=== PATIENT | female | born 1970 | race Caucasian/White ===

== ENCOUNTER → 2016-05-12 | Outpatient (CLI) | payer OTHER ==
[~2016-05-12] MED LIST: NEXI20CA PO; TRAM50TA PO; ZYRT10TA PO
[2016-05-12 09:59] LABS: ALKALINE PHOSPHATASE 103 U/L (45-117); ALT (GPT) 26 U/L (10-53); ANION GAP 6 MEQ/L (5-15); AST (GOT) 13 U/L (15-37); BICARBONATE 28.3 MEQ/L (21.0-32.0); BLOOD UREA NITROGEN 9 MG/DL (7-18); CHLORIDE 104 MEQ/L (98-107); FREE T4 0.92 NG/DL (0.76-1.46); GLOMERULAR FILTRATION RATE 84 ML/MIN (>89); GLUCOSE,FASTING 90 MG/DL (74-99); SODIUM (NA) 138 MEQ/L (136-145)
[2016-05-12 10:19] LABS: RHEUMATOID FACTOR TRIGGER LESS THAN 10.0 IU/ML (0.0-14.9)
== END ==
LOC: CLAB 08:02
PROVIDERS: ATTEND Family Medicine
DX: R53.83 Other fatigue (principal); M25.20 Flail joint, unspecified joint; I10 Essential (primary) hypertension
CPT/HCPCS: 36415; 80053; 84439; 84443; 85652; 86038; 86140; 86430

== ENCOUNTER → 2016-05-30 | Outpatient (CLI) | payer OTHER ==
[2016-05-30 15:45] LABS: HEMATOCRIT 41.6 % (35.0-46.0); MEAN CELL VOLUME 85.6 FL (80.0-100.0); MEAN CORPUSCULAR HEMOGLOBIN 29.7 PG (27.0-34.0); MEAN CORPUSCULAR HGB CONC 34.7 % (32.0-36.0); PLATELET COUNT 226 TH/MM3 (150-450); RED BLOOD COUNT 4.86 MIL/MM3 (4.00-5.30); RED CELL DISTRIBUTION WIDTH 12.8 % (11.6-17.2); REVIEW FLAG FINAL; WHITE BLOOD COUNT 8.5 TH/MM3 (4.0-11.0)
== END ==
LOC: PLAB 12:58
PROVIDERS: ATTEND Family Medicine
DX: R53.83 Other fatigue (principal); D72.828 Other elevated white blood cell count; G62.89 Other specified polyneuropathies; E55.9 Vitamin D deficiency, unspecified
CPT/HCPCS: 82306; 82607; 85027

== ENCOUNTER → 2016-06-17 | Outpatient (CLI) | payer OTHER ==
[2016-06-17 12:27] LABS: BLOOD, URINE NEG (NEG); GLUCOSE,URINE NEG (NEG); KETONE, URINE NEG (NEG); NITRITE,URINE NEG (NEG); SQUAMOUS EPITHELIAL CELL URINE <1 /hpf (0-5); URINE COLOR YELLOW (YELLW/STRAW)
== END ==
LOC: ELAB 08:47
PROVIDERS: ATTEND Family Medicine
DX: N39.0 Urinary tract infection, site not specified (principal); R10.9 Unspecified abdominal pain; R31.9 Hematuria, unspecified
CPT/HCPCS: 81001

== ENCOUNTER → 2016-07-14 | Outpatient (CLI) | payer OTHER ==
[2016-07-14 11:58] LABS: AUTOMATED NEUTROPHIL # 5.3 TH/MM3 (1.8-7.7); BASOPHIL # 0.1 TH/MM3 (0-0.2); EOSINOPHIL # 0.2 TH/MM3 (0-0.4); EOSINOPHIL % 2.7 % (0.0-4.0); HEMATOCRIT 44.2 % (35.0-46.0); HEMO FLAGS DIFF FINAL; LYMPH % 24.2 % (9.0-44.0); LYMPHOCYTE # 1.9 TH/MM3 (1.0-4.8); MEAN CELL VOLUME 85.8 FL (80.0-100.0); MEAN CORPUSCULAR HEMOGLOBIN 29.3 PG (27.0-34.0); MEAN CORPUSCULAR HGB CONC 34.2 % (32.0-36.0); MONO % 5.5 % (0.0-8.0); NEUT % 66.6 % (16.0-70.0); PLATELET COUNT 242 TH/MM3 (150-450); RED BLOOD COUNT 5.16 MIL/MM3 (4.00-5.30); RED CELL DISTRIBUTION WIDTH 13.1 % (11.6-17.2)
[2016-07-14 12:17] LABS: BLOOD, URINE NEG (NEG); COMMENT (UR) CULT NOT INDICATED; CULTURE IF INDICATED CULT NOT INDICATED; GLUCOSE,URINE NEG (NEG); KETONE, URINE NEG (NEG); NITRITE,URINE NEG (NEG); SQUAMOUS EPITHELIAL CELL URINE 2 /hpf (0-5); URINE COLOR YELLOW (YELLW/STRAW)
[2016-07-14 12:28] LABS: ALKALINE PHOSPHATASE 116 U/L (45-117); ALT (GPT) 31 U/L (10-53); ANION GAP 9 MEQ/L (5-15); AST (GOT) 19 U/L (15-37); BLOOD UREA NITROGEN 15 MG/DL (7-18); CHLORIDE 102 MEQ/L (98-107); GLOMERULAR FILTRATION RATE 76 ML/MIN (>89); GLUCOSE,FASTING 79 MG/DL (74-99); POTASSIUM 3.7 MEQ/L (3.5-5.1); SODIUM (NA) 140 MEQ/L (136-145); TOTAL BILIRUBIN ADULT 0.9 MG/DL (0.2-1.0)
== END ==
LOC: ELAB 08:20
PROVIDERS: ATTEND Obstetrics & Gynecology Gynecology
DX: R39.15 Urgency of urination (principal)
CPT/HCPCS: 36415; 80053; 81001; 85025

== ENCOUNTER → 2016-07-22 | Day surgery (SDC) | payer OTHER ==
[~2016-07-22] VITALS: Ht 160 cm; Wt 122.8 kg
[~2016-07-22] MED LIST changes: +ACETAMINOPHEN 1000 MG/100 ML VIAL IV ONE; +APREPITANT 40 MG CAP ONE; +CHLORHEXIDINE GLUCONATE 2 % 1 PACK (2 CLOTHS) TOPICAL PRN; +FAMOTIDINE 20 MG/2 ML VIAL ONE; +INSULIN HUMAN REGULAR 1,000 UNITS/10 ML VIAL SQ PRN; +KETOROLAC TROMETHAMINE 30 MG/ML (IVP) VIAL ONE; +KETOROLAC TROMETHAMINE 60 MG/2 ML (IM) VIAL IM ONE; +LACTATED RINGER'S 1000 ML IV PRN; +METOPROLOL TARTRATE 25 MG TAB PO PRN; +MIDAZOLAM HCL 2 MG/2 ML VIAL ONE; +ONDANSETRON HCL 4 MG/2 ML VIAL IV PUSH ONE; +POVIDONE IODINE 5% (ANTISEPSIS KIT) 4 APPLICATIONS EACH NARE PRN; +PROPOFOL 200 MG/20 ML AMP IV ONE; +SODIUM CHLORID 0.9% 500 ML IV PRN; +ceFAZolin 2 GM PREMIX 50 ML IV SCH
[2016-07-22 07:51] VITALS: BP 118/54; PULSE 47; RESP 16; TEMP 98.4; O2SAT 98
--- NOTE | 2016-07-22 08:43 | MH ---
cc: ASHLIE POP MD DATE OF ADMISSION: 07/22/2016 DATE OF : 1970 scheduled for admission on 07/22/2016 for cystoscopy and hydrodistention for bladder pain. Patient is a 46-year-old white female 2, para 2. She has had two sections and total abdominal hysterectomy. She has issues with bladder discomfort bladder spasms and mild hematuria. She also has history of left lower quadrant pelvic pain. The patient has had a negative urinalysis continues to have pain and wants to proceed with cystoscopy. SURGEON Ashlie Pop MD. MEDICAL HISTORY Negative for heart, lung, liver disease, hypertension, diabetes or stroke. Body mass index is approaching 50. PAST SURGICAL HISTORY 1. Thyroid biopsy 2. Cholecystectomy 3. x2 4. Hysterectomy. 5. Tubal ligation 6. Right shoulder surgery. MEDICATIONS Tramadol 2 mg p.o. q.8 h p.r.n. ALLERGIES PENICILLIN CAUSES RASH. OBSTETRICAL HISTORY Two C-sections GYNECOLOGIC HISTORY No STDs or abnormal Pap smears hysterectomy for benign condition. FAMILY HISTORY Noncontributory SOCIAL HISTORY Does not smoke, use alcohol or drugs. REVIEW OF SYSTEMS Review of systems as above. No chest pain, orthopnea, PND. No nausea or chills. No vaginal bleeding or discharge bladder pain is intermittent as describes bladder spasms intermittent hematuria. PHYSICAL EXAMINATION: VITAL SIGNS: Her height 5.3. The weight is 270, BMI is 48, blood pressure 120/70. IN GENERAL: The patient is alert and oriented, in no acute distress. No sign of cognitive function depression. HEAD, EYES, EARS, NOSE, AND THROAT: Within normal limits. NECK: The neck is supple. No JVD. CHEST: The chest is clear. HEART: Regular rate and rhythm. ABDOMEN: Soft, nontender, No hepatosplenomegaly. No site tenderness. PELVIC EXAMINATION: In the office shows pop Q score is Aa -3. Ap -3, point C is -8, total vaginal length is 10, genital hiatus is 4. Perineal body is 5. Levator strength is 3/5. Sacral nerve reflexes normal. EXTREMITIES: Normal skin rashes. NEUROLOGIC: Nonfocal. No DVT signs. ASSESSMENT Patient with bladder pain syndrome we discussed operative, benefits of treatment, She is aware of the risks, benefits and alternatives of planned procedure including possibility of pain may not be relieved. She is also aware that the cystoscopy will have probably very little affect if any on her chronic pelvic pain issues on her left side. At this point we will use we will use DVT prophylaxis with sequential compression device and antibiotic prophylaxis with Ancef. She has a penicillin allergy which she has used cephalosporins in the past without complications. Anticipate outpatient procedure. MD PRECIOUS Colmenares/miranda /4:29 PM /8:41 AM
--- NOTE | 2016-07-22 09:49 | PD.OP ---
Operative Report Date of Surgery: Jul 22, 2016 Preoperative Diagnosis: (1) Bladder pain Postoperative Diagnosis: (1) Bladder pain (2) Trigonitis Procedure: CYSTOSCOPY WITH HYDRODISTENTION Anesthesia: LMA Surgeon: Reuben Grajeda Ux Manager(s): [facility] [place] X 1 Resident Surgeon: NONE Operation and Findings: TRIGONITIS BLADDER CAPACITY 350 CC Reuben Grajeda MD Jul 22, 2016 09:49
[2016-07-22 10:55] VITALS: BP 124/54; PULSE 44; RESP 18; TEMP 97.4; O2SAT 97
--- NOTE | 2016-07-24 17:29 | MP ---
cc: ASHLIE POP MD DATE OF SURGERY 07/22/2016 PREOPERATIVE DIAGNOSIS Bladder pain syndrome. POSTOPERATIVE DIAGNOSES Bladder pain syndrome with chronic trigonitis. SURGEON Taras ANESTHESIA Laryngeal mask. BLOOD LOSS None. URINE OUTPUT 200 cc. PATENT LEGAL ASSISTANT [place] staff x1. FINDINGS External genitalia normal. POP-Q score: Aa is -2, Ap is -1. Total vaginal length is 8. Genital hiatus is 6. Perineal body is 6. Point C is -8. Rectal exam normal. Cystoscopy shows no sign of ulceration, polyps, trabeculation. Trigone shows some mild trigonitis, otherwise, no significant findings. Bladder capacity at 50 cm of water pressure 350 cc. COMPLICATIONS None. DISPOSITION To recovery room stable. Needle, instrument, sponge count correct. DRAINS None. SUMMARY OF INDICATION FOR PROCEDURE Patient with painful bladder symptomatology. The patient has history of hysterectomy and chronic pelvic pain. PROCEDURE IN DETAIL The patient was taken to the operating theater, prepped and draped in fashion appropriate for planned procedure. She was in dorsal lithotomy position, with careful attention placed legs in stirrups to avoid undue stress to sensitive neurovascular structures. Above findings noted. Neurovascular integrity documented. 17-Nigerian __, a 70 degrees scope was used to inspect the bladder and urethra with above findings. Bladder capacity documented and then repeat cystoscopy showed no significant findings. Procedure was concluded. The patient reversed from anesthesia, taken to recover room in stable condition. For the patient's issues with continued pain, will use antihistamines and anticholinergics or beta three agonist for bladder pain symptomatology. Ashlie Pop MD CS/EO /9:47 AM /5:19 PM
== END | disposition home or self-care (01) ==
LOC: HSDC 06:55
PROVIDERS: ATTEND Obstetrics & Gynecology Gynecology
DX: N30.30 Trigonitis without hematuria (principal); R39.89 Other symptoms and signs involving the genitourinary system
CPT/HCPCS: 00910; 52000; J0131; J0690; J1885; J2250; J2405; J3010; J7120; J8501

== ENCOUNTER → 2016-08-25 | Outpatient (CLI) | payer OTHER ==
[~2016-08-25] MED LIST changes: -ACETAMINOPHEN 1000 MG/100 ML VIAL IV ONE; -APREPITANT 40 MG CAP ONE; -CHLORHEXIDINE GLUCONATE 2 % 1 PACK (2 CLOTHS) TOPICAL PRN; -FAMOTIDINE 20 MG/2 ML VIAL ONE; -INSULIN HUMAN REGULAR 1,000 UNITS/10 ML VIAL SQ PRN; -KETOROLAC TROMETHAMINE 30 MG/ML (IVP) VIAL ONE; -KETOROLAC TROMETHAMINE 60 MG/2 ML (IM) VIAL IM ONE; -LACTATED RINGER'S 1000 ML IV PRN; -METOPROLOL TARTRATE 25 MG TAB PO PRN; -MIDAZOLAM HCL 2 MG/2 ML VIAL ONE; -ONDANSETRON HCL 4 MG/2 ML VIAL IV PUSH ONE; -POVIDONE IODINE 5% (ANTISEPSIS KIT) 4 APPLICATIONS EACH NARE PRN; -PROPOFOL 200 MG/20 ML AMP IV ONE; -SODIUM CHLORID 0.9% 500 ML IV PRN; -ceFAZolin 2 GM PREMIX 50 ML IV SCH
[2016-08-25 11:49] LABS: HEMATOCRIT 46.4 % (35.0-46.0); MEAN CELL VOLUME 86.4 FL (80.0-100.0); MEAN CORPUSCULAR HGB CONC 33.5 % (32.0-36.0); PLATELET COUNT 222 TH/MM3 (150-450); RED BLOOD COUNT 5.37 MIL/MM3 (4.00-5.30); RED CELL DISTRIBUTION WIDTH 13.3 % (11.6-17.2); REVIEW FLAG FINAL; WHITE BLOOD COUNT 6.9 TH/MM3 (4.0-11.0)
[2016-08-25 11:56] LABS: BLOOD, URINE NEG (NEG); COMMENT (UR) CULT NOT INDICATED; CULTURE IF INDICATED CULT NOT INDICATED; GLUCOSE,URINE NEG (NEG); KETONE, URINE NEG (NEG); MUCUS URINE FEW /lpf (OCC); NITRITE,URINE NEG (NEG); PH, URINE 5.5 (5.0-8.5); SQUAMOUS EPITHELIAL CELL URINE 1 /hpf (0-5); URINE COLOR YELLOW (YELLW/STRAW)
[2016-08-25 12:07] LABS: CREATININE RANDOM URINE 92 MG/DL (27-300)
[2016-08-25 12:13] LABS: ANION GAP 8 MEQ/L (5-15); AST (GOT) 15 U/L (15-37); BICARBONATE 27.4 MEQ/L (21.0-32.0); BLOOD UREA NITROGEN 11 MG/DL (7-18); CHLORIDE 103 MEQ/L (98-107); GLOMERULAR FILTRATION RATE 102 ML/MIN (>89); GLUCOSE,FASTING 88 MG/DL (74-99); MAGNESIUM 2.2 MG/DL (1.5-2.5); POTASSIUM 4.2 MEQ/L (3.5-5.1); SODIUM (NA) 138 MEQ/L (136-145)
[2016-08-25 12:17] LABS: MICRO ALBUMIN RANDOM URINE RAW LESS THAN 5.0 MG/L (0.0-30.0); MICROALBUMIN/CREAT RATIO RAND 5 MG/G CRE (0-30)
[2016-08-25 12:39] LABS: ALKALINE PHOSPHATASE 115 U/L (45-117); ALT (GPT) 38 U/L (10-53); FERRITIN 91 NG/ML (8-252); FREE T4 0.96 NG/DL (0.76-1.46); HDL CHOLESTEROL 56.1 MG/DL (40.0-60.0); LDL CHOLESTEROL 82 MG/DL (0-99); TRANSFERRIN IRON PROFILE 244 MG/DL (200-360)
[2016-08-25 12:53] LABS: BHCG SCREEN QUALITATIVE LESS THAN 1 MIU/ML (0-5)
[2016-08-25 17:25] LABS: HEMOGLOBIN A1a 0.9 %; HEMOGLOBIN A1b 1.2 %
[2016-08-25 17:26] LABS: HEMOGLOBIN Ao 87.2 %; HEMOGLOBIN LA1C 1.8 %; HEMOGLOBIN P3 3.4 %
[2016-08-27 13:09] LABS: URINE ANABASINE <2.0 ng/mL (<2.0); URINE COTININE <5.0 ng/mL (<5.0); URINE NICOTINE <2.0 ng/mL (<2.0); URINE NORNICOTINE <2.0 ng/mL (<2.0)
[2016-08-30 11:51] LABS: VITAMIN A 44 mcg/dL (38-98)
== END ==
LOC: ELAB 08:19
PROVIDERS: ATTEND Surgery
DX: E11.9 Type 2 diabetes mellitus without complications (principal); K21.9 Gastro-esophageal reflux disease without esophagitis; R12 Heartburn; K58.9 Irritable bowel syndrome, unspecified; G47.33 Obstructive sleep apnea (adult) (pediatric); E66.01 Morbid (severe) obesity due to excess calories
CPT/HCPCS: 36415; 80053; 80061; 80323; 81001; 82043; 82306; 82607; 82728; 82746; 83036; 83540; 83550; 83735; 83970; 84100; 84439; 84443; 84481; 84590; 84703; 85027; G0480

== ENCOUNTER → 2016-10-27 | Outpatient (CLI) | payer OTHER ==
[2016-10-29 17:53] LABS: A FUMIGATUS CLASS 0 (()); A TENUIS LESS THAN 0 kU/L (()); A TENUIS CLASS 0 (()); ALMOND LESS THAN 0.10 kU/L (()); ALMOND CLASS 0 (()); BAHIA GRASS LESS THAN 0.10 kU/L (()); BAHIA GRASS CLASS 0 (()); BERMUDA GRASS LESS THAN 0.10 kU/L (()); BERMUDA GRASS CLASS 0 (()); BIRCH CLASS 0 (()); C HERBARUM LESS THAN 0.10 kU/L (()); C HERBARUM CLASS 0 (()); CASHEW CLASS 0 (()); CAT DANDER LESS THAN 0.10 kU/L (()); CAT DANDER CLASS 0 (()); COCKROACH LESS THAN 0.10 kU/L (()); COCKROACH CLASS 0 (()); CODFISH CLASS 0 (()); COMMON PIGWEED LESS THAN 0.10 kU/L (()); COMMON PIGWEED CLASS 0 (()); COMMON RAGWEED LESS THAN 0.10 kU/L (()); COMMON RAGWEED CLASS 0 (()); COWS MILK CLASS 0 (()); COWS MILK IGE LESS THAN 0.10 kU/L (()); D FARINAE LESS THAN 0.10 kU/L (()); D FARINAE CLASS 0 (()); D PTERONYSSINUS LESS THAN 0.10 kU/L (()); D PTERONYSSINUS CLASS 0 (()); DOG DANDER LESS THAN 0.10 kU/L (()); DOG DANDER CLASS 0 (()); EGG WHITE LESS THAN 0.10 kU/L (()); EGG WHITE CLASS 0 (()); ELM CLASS 0 (()); HAZELNUT LESS THAN 0.10 kU/L (()); HAZELNUT CLASS 0 (()); MAPLE (BOX ELDER) LESS THAN 0.10 kU/L (()); MAPLE (BOX ELDER) CLASS 0 (()); MOUNTAIN CEDAR LESS THAN 0.10 kU/L (()); MOUNTAIN CEDAR CLASS 0 (()); MOUSE CLASS 0 (()); MOUSE URINE PROTEINS LESS THAN 0.10 kU/L (()); NETTLE LESS THAN 0.10 kU/L (()); NETTLE CLASS 0 (()); OAK WHITE LESS THAN 0.10 kU/L (()); OAK WHITE CLASS 0 (()); P NOTATUM LESS THAN 0.10 kU/L (()); P NOTATUM CLASS 0 (()); PEANUT LESS THAN 0.10 kU/L (()); PEANUT CLASS 0 (()); PECAN TREE CLASS 0 (()); SALMON LESS THAN 0.10 kU/L (()); SALMON CLASS 0 (()); SCALLOP LESS THAN 0.10 kU/L (()); SCALLOP CLASS 0 (()); SESAME SEED LESS THAN 0.10 kU/L (()); SESAME SEED CLASS 0 (()); SHEEP SORREL LESS THAN 0.10 kU/L (()); SHEEP SORREL CLASS 0 (()); SHRIMP LESS THAN 0.10 kU/L (()); SHRIMP CLASS 0 (()); SOYBEAN LESS THAN 0.10 kU/L (()); SOYBEAN CLASS 0 (()); TIMOTHY GRASS LESS THAN 0.10 kU/L (()); TIMOTHY GRASS CLASS 0 (()); TUNA LESS THAN 0.10 kU/L (()); TUNA CLASS 0 (()); WALNUT LESS THAN 0.10 kU/L (()); WALNUT CLASS 0 (()); WHEAT LESS THAN 0.10 kU/L (()); WHEAT CLASS 0 (())
== END ==
LOC: ELAB 07:41
PROVIDERS: ATTEND Family Medicine
DX: J30.9 Allergic rhinitis, unspecified (principal); T78.40XD Allergy, unspecified, subsequent encounter
CPT/HCPCS: 36415; 82785; 86003

== ENCOUNTER → 2017-05-09 | Day surgery (SDC) | payer OTHER ==
[~2017-05-09] MED LIST changes: +AZIT250T3 PO; +PROPOFOL 500 MG/50 ML BTL IV ONE; +SODIUM CHLOR 0.9% 250 ML BAG IV ONE
--- NOTE | 2017-05-09 14:37 | GIPROC ---
[facility] [address] [facility], [address] EGD PROCEDURE REPORT EXAM DATE: 05/09/2017 PATIENT NAME: Kirsten Garibay MR #: [id number] BIRTHDATE: 1970 ATTENDING: Aidan Ritter MD ORDER #: [id number] DIRECTOR FUNDRAISING: none STATUS: outpatient INDICATIONS: The patient is a 47 yr old female here for an EGD due to heartburn PROCEDURE PERFORMED: EGD w/ biopsy MEDICATIONS: None and Per Anesthesia. TOPICAL ANESTHETIC: none CONSENT: The patient understands the risks and benefits of the procedure and understands that these risks include, but are not limited to: sedation, allergic reaction, infection, perforation and/or bleeding. Alternative means of evaluation and treatment include, among others: physical exam, x-rays, and/or surgical intervention. The patient elects to proceed with this endoscopic procedure. medical equipment was checked for proper function. Hand hygiene and appropriate measures for infection prevention was taken. After the risks, benefits and alternatives of the procedure were thoroughly explained, Informed consent was verified, confirmed and timeout was successfully executed by the treatment team. The patient was anesthetized with anesthesia and the EG-[id number] ([id number]) endoscope was introduced through the mouth and advanced to the second portion of the duodenum. Retroflexed views revealed a small hiatal hernia The gastroscope was then slowly withdrawn and removed. ESOPHAGUS: A 1cm hiatal hernia was noted. STOMACH: There was gastritis in the gastric body. Multiple small smooth semi-pedunculated polyps were found. ADVERSE EVENTS: There were no complications. IMPRESSIONS: 1. 1cm hiatal hernia 2. Retroflexed views revealed a hiatal hernia 3. small polyps noted RECOMMENDATIONS: 1. Await biopsy results. Biopsy results will not be ready for 7-10 days. If you don't hear from us in two weeks, call our office for biopsy results. 2. Start PPI PATIENT CONDITION: fair DISPOSITION: Home REPEAT EXAM: NONE Aidan Ritter MD eSigned: Aidan Ritter MD 05/09/2017 2:37 PM cc: Aidan Ritter MD PATIENT NAME: Kirsten Garibay MR#: [id number]
== END | disposition home or self-care (01) ==
LOC: ESDC 13:01
PROVIDERS: ATTEND Surgery
DX: R12 Heartburn (principal); K44.9 Diaphragmatic hernia without obstruction or gangrene; K29.70 Gastritis, unspecified, without bleeding; K31.7 Polyp of stomach and duodenum
CPT/HCPCS: 00731; 43239; 88305; 88312; J3010; J7050

== ENCOUNTER → 2017-06-08 | Outpatient (CLI) | payer OTHER ==
[~2017-06-08] MED LIST changes: -PROPOFOL 500 MG/50 ML BTL IV ONE; -SODIUM CHLOR 0.9% 250 ML BAG IV ONE
[2017-06-08 10:35] LABS: AUTOMATED NEUTROPHIL # 4.9 TH/MM3 (1.8-7.7); BASOPHIL # 0.1 TH/MM3 (0-0.2); BASOPHIL % 1.3 % (0.0-2.0); EOSINOPHIL # 0.2 TH/MM3 (0-0.4); EOSINOPHIL % 2.4 % (0.0-4.0); HEMATOCRIT 44.5 % (35.0-46.0); HEMOGLOBIN 15.5 GM/DL (11.6-15.3); LYMPH % 22.3 % (9.0-44.0); LYMPHOCYTE # 1.6 TH/MM3 (1.0-4.8); MEAN CORPUSCULAR HEMOGLOBIN 29.9 PG (27.0-34.0); MEAN CORPUSCULAR HGB CONC 34.8 % (32.0-36.0); MEAN PLATELET VOLUME 8.6 FL (7.0-11.0); MONO % 7.5 % (0.0-8.0); MONOCYTE # 0.6 TH/MM3 (0-0.9); NEUT % 66.5 % (16.0-70.0); PLATELET COUNT 248 TH/MM3 (150-450); RED BLOOD COUNT 5.18 MIL/MM3 (4.00-5.30); RED CELL DISTRIBUTION WIDTH 12.7 % (11.6-17.2); WHITE BLOOD COUNT 7.3 TH/MM3 (4.0-11.0)
[2017-06-08 10:40] LABS: INTERNATIONAL NORMALIZED RATIO 1.1 RATIO; PROTHROMBIN TIME - PATIENT 11.5 SEC (9.8-11.6)
[2017-06-08 10:46] LABS: BICARBONATE 28.9 MEQ/L (21.0-32.0); CALCIUM 9.2 MG/DL (8.5-10.1); CREATININE 0.9 MG/DL (0.50-1.00)
== END ==
LOC: ELAB 07:31
PROVIDERS: ATTEND Nurse Practitioner
DX: Z01.818 Encounter for other preprocedural examination (principal)
CPT/HCPCS: 36415; 80048; 85025; 85610

== ENCOUNTER 2017-06-21 05:25 | Inpatient (IN) | payer OTHER ==
[~2017-06-21] VITALS: Ht 162.6 cm; Wt 112.0 kg
[~2017-06-21 05:25] MED LIST changes: -AZIT250T3 PO; +CETI10CH CHEW; +DAILTAB38 PO; -NEXI20CA PO; -TRAM50TA PO; -ZYRT10TA PO
[2017-06-21] MEDS ORDERED: VANCOMYCIN 1,000 MG/NS 250ML (for <70 kg) IV SCH ×2 (06:00)
[2017-06-21] MEDS ORDERED: LACTATED RINGER'S 1000 ML IV PRN (06:00)
[2017-06-21] MEDS ORDERED: SODIUM CHLORID 0.9% 500 ML IV PRN (06:00)
[2017-06-21] MEDS ORDERED: POVIDONE IODINE 5% (ANTISEPSIS KIT) 4 APPLICATIONS EACH NARE PRN (06:00)
[2017-06-21] MEDS ORDERED: SCOPOLAMINE 1.5 MG PATCH T-DERMAL SCH (06:00)
[2017-06-21] MEDS ORDERED: metroNIDAZOLE 500 MG INJ 100 ML IV SCH (06:00)
[2017-06-21] MEDS ORDERED: APREPITANT 40 MG CAP PO SCH (06:00)
[2017-06-21] MEDS ORDERED: CHLORHEXIDINE GLUCONATE 2 % 1 PACK (2 CLOTHS) TOPICAL PRN (06:00)
[2017-06-21] MEDS ORDERED: METOPROLOL TARTRATE 25 MG TAB PO PRN (06:00)
[2017-06-21] MEDS ORDERED: ONDANSETRON HCL 4 MG/2 ML VIAL IV PUSH SCH (06:00)
[2017-06-21] MEDS: ACETAMINOPHEN 1000 MG/100 ML 100 ML IV SCH ×4 (06:37→16:46)
--- NOTE | 2017-06-21 09:41 | HHI.PR ---
Immediate Post Op Note Procedure Date: Jun 21, 2017 Pre Op Diagnosis: bmi 42, morbid obesity, jamia, gerd Post Op Diagnosis: same Surgeon: Aidan Ritter MD Plastic And Reconstructive Surgeon(s): see or sheet Procedure: lap sleeve Findings: no leak Complications: none Specimen(s) removed: stomach Estimated blood loss: 5cc Anesthesia: General Drains: None Patient to: PACU Patient Condition: Good Aidan Ritter MD Jun 21, 2017 09:41
[2017-06-21] MEDS ORDERED: BUPIVACAINE/EPINEPHRINE 0.25% 50 ML VIAL ONE (10:08)
[2017-06-21] MEDS: D5-1/2 NS + KCL 20 MEQ INJ 1,000 ML IV SCH ×2 (11:40→18:56)
[2017-06-21] MEDS ORDERED: DO NOT ADM ANY ANTICOAGULANT DRUGS PRN (11:41)
[2017-06-21] MEDS: SODIUM CHLORIDE 0.9% FLUSH 10 ML FLUSH IV FLUSH SCH ×2 (11:45→21:00)
[2017-06-21] MEDS: PANTOPRAZOLE SOD 40 MG DELAYED RELEASE TAB PO SCH (11:45)
[2017-06-21] MEDS ORDERED: ACETAMINOPHEN 325MG/HYDROcodone 7.5MG/15ML UDC PO PRN ×2 (11:45)
[2017-06-21] MEDS ORDERED: diphenhydrAMINE HCL 50 MG/ML VIAL IV PUSH PRN (11:45)
[2017-06-21] MEDS ORDERED: NALOXONE HCL 0.4 MG/ML AMP IV PUSH PRN (11:45)
[2017-06-21] MEDS ORDERED: SODIUM CHLORIDE 0.9% FLUSH 10 ML FLUSH IV FLUSH PRN (11:45)
[2017-06-21] MEDS ORDERED: Post-op Orders (for Pharmacy) OTHER ONE (11:45)
[2017-06-21] MEDS ORDERED: HYDROmorphone HCL PCA 6 MG/30 ML IV SCH (11:45)
[2017-06-21] MEDS ORDERED: ENALAPRILAT 1.25 MG/ML VIAL IV PUSH PRN (11:45)
[2017-06-21] MEDS ORDERED: diphenhydrAMINE HCL ELIXIR 12.5 MG/5 ML CUP PO PRN (11:45)
[2017-06-21] MEDS ORDERED: MIDAZOLAM HCL 2 MG/2 ML VIAL ONE (11:50)
[2017-06-21] MEDS ORDERED: ONDANSETRON HCL 4 MG/2 ML VIAL IV ONE (12:00)
[2017-06-21] MEDS ORDERED: ePHEDrine/NS 25 MG/5 ML SYRINGE IV ONE (12:00)
[2017-06-21] MEDS ORDERED: LACTATED RINGER'S 1000 ML INJ 1,000 ML IV ONE (12:00)
[2017-06-21] MEDS ORDERED: ROCURONIUM INJ 50 MG/5 ML SYRINGE IV PUSH ONE (12:00)
[2017-06-21] MEDS ORDERED: NEOSTIGMINE 5 MG/5 ML SYRINGE IV PUSH ONE (12:00)
[2017-06-21] MEDS ORDERED: GLYCOPYRROLATE 1 MG/5 ML SYRINGE IV PUSH ONE (12:00)
[2017-06-21] MEDS: RESP: ALBUTEROL 2.5 MG/3 ML NEB (SCH) INH (12:00)
[2017-06-21] MEDS ORDERED: DEXAMETHASONE SOD PHOS 4 MG/ML VIAL IV ONE (12:00)
[2017-06-21] MEDS ORDERED: PROPOFOL 200 MG/20 ML AMP IV ONE (12:00)
[2017-06-21] MEDS ORDERED: LIDOCAINE HCL 1% PF 5 ML SYRINGE OTHER ONE (12:00)
--- NOTE | 2017-06-21 12:52 | MP ---
cc: Aidan Ritter MD DATE OF OPERATION: 06/21/2017 PREOPERATIVE DIAGNOSES: Morbid obesity, body mass index of 42, comorbidities of obstructive sleep apnea, reflux. POSTOPERATIVE DIAGNOSES: Morbid obesity, body mass index of 42, comorbidities of obstructive sleep apnea, reflux. PROCEDURE PERFORMED: Laparoscopic sleeve gastrectomy over 36 F visigi bougi SURGEON: Aidan Ritter MD ASSISTANTS: See OR jyotsna, Lisa and Dr. Fowler. ANESTHESIA: GETA. INTRAVENOUS FLUIDS: See anesthesia sheet. ESTIMATED BLOOD LOSS: 5 mL. DRAINS: None. COMPLICATIONS:. None. WOUND CLASSIFICATION: Clean/contaminated. FINDINGS: No leak on saline submersion of methylene blue. Hemostasis. SPECIMENS: Stomach. INDICATIONS FOR PROCEDURE: The patient is a 47-year-old female who presents with morbid obesity, multiple comorbidities including sleep apnea, reflux, and a BMI of 42. She has had multiple attempts at weight loss without success; therefore the decision for bariatric surgery. DETAILS OF PROCEDURE: The patient was taken to the operating suite, placed in supine position. She was prepped and draped in the usual sterile fashion after induction of general endotracheal anesthesia. A brief timeout was done stating the correct patient, procedure, surgical site. We were al in agreement with this. Attention was first directed 15 cm distal to the xiphoid in midline and local anesthetic was anesthetized and an 11 blade was used to make a stab dylan incision. A Visiport Optiview 5 mm was used to enter the abdomen safely. Pneumoperitoneum obtained, 15 mm pneumoperitoneum. On cursory inspection, no evidence of injury. Several other ports were placed, including right upper quadrant 5 mm port for liver retraction, a 15 mm right lower quadrant port, left lower quadrant 5 mm port and a left upper quadrant 5 mm port. The patient was placed in reverse Trendelenburg and airplaned to the left. The liver was retracted with a Monet Flex retractor. The vasculature of the greater curvature of the stomach was using harmonic scalpel, 5 cm proximal to the pylorus, carried up all the way to the angle of His. The angle of His was taken out bluntly. The posterior ligament attachments were minimally as well. A 36-Andorran ViSiGi bougie was advanced and entered and placed to suction. The sleeve gastrectomy was done over a calibration device of the 36-[place]orran ViSiGi bougie. This was done 5 cm from the pylorus, carried up all the way to the angle of His. This was completely excised, to excise approximately 80% of the stomach. This was done with the Endo-JANIA stapler, Finzel initial black load, followed by green load and then gold load. This with SeamGuard reinforced. This was done 2 cm to the left of the angle of incisura and 1 cm to the left of the GE junction staple line. Methylene blue was instilled and noted no extravasation and no leak. The posterior leaflet of the SeamGuard approximately two-thirds distal was sewn to the gastrocolic ligament in a [id number] fashion to this point. Otherwise, the adhesions anatomically aligned the stomach sleeve appropriately. Minimal bleeding with hemostasis obtained. Next, the stomach was removed from the 15 mm port. 0 Vicryl was used to close the fascia of the 15 mm port, followed by 4-0 Monocryl to all subcuticular incisions. The ports were removed. Pneumoperitoneum was removed prior. The patient was flattened out and again the stomach had been removed through the 15 mm port. Sterile dressings were placed over the incision sites. The patient was taken stable to the PACU. All lap and instrument counts were correct. MD GUS Albert/PO , 11:53 AM , 12:[address] [facility]
[2017-06-21] MEDS: METOCLOPRAMIDE HCL 10 MG/2 ML VIAL IV PUSH SCH ×2 (12:59→18:52)
[2017-06-21] MEDS ORDERED: ENOXAPARIN SODIUM 40 MG/0.4 ML SYRINGE SQ SCH (15:36)
[2017-06-21 16:00] VITALS: BP 97/55; PULSE 58; RESP 17; TEMP 98.2; O2SAT 93
[2017-06-21] MEDS: ONDANSETRON HCL 4 MG/2 ML VIAL IV PUSH PRN ×2 (16:43→16:46)
[2017-06-21 20:00] VITALS: BP 109/56; PULSE 51; RESP 16; TEMP 97.2; O2SAT 96
[2017-06-21] MEDS: VANCOMYCIN INJ 1,000 MG in SODIUM CHLOR 0.9% 250 ML INJ 250 ML IV SCH (21:55)
[2017-06-21] MEDS: PCA - TOTAL MG DILAUDID DELIVERED PER SHIFT OTHER SCH (21:56)
[2017-06-22] VITALS: BP 110/56; PULSE 43; RESP 16; TEMP 95.2; O2SAT 97
[2017-06-22] MEDS: ACETAMINOPHEN 1000 MG/100 ML 100 ML IV SCH ×2 (00:07→04:08)
[2017-06-22] MEDS: METOCLOPRAMIDE HCL 10 MG/2 ML VIAL IV PUSH SCH ×2 (00:08→05:39)
[2017-06-22] MEDS: RESP: ALBUTEROL 2.5 MG/3 ML NEB (SCH) INH ×4 (00:22→11:43)
[2017-06-22 04:00] VITALS: BP 111/56; PULSE 50; RESP 16; TEMP 98; O2SAT 97
[2017-06-22] MEDS: D5-1/2 NS + KCL 20 MEQ INJ 1,000 ML IV SCH ×2 (04:08→11:39)
[2017-06-22] MEDS: PCA - TOTAL MG DILAUDID DELIVERED PER SHIFT OTHER SCH (05:39)
[2017-06-22 06:17] LABS: AUTOMATED NEUTROPHIL # 12.9 TH/MM3 (1.8-7.7); BASOPHIL % 0.2 % (0.0-2.0); HEMATOCRIT 39.8 % (35.0-46.0); HEMOGLOBIN 13.9 GM/DL (11.6-15.3); LYMPHOCYTE # 0.7 TH/MM3 (1.0-4.8); MEAN CELL VOLUME 86.8 FL (80.0-100.0); MEAN CORPUSCULAR HEMOGLOBIN 30.3 PG (27.0-34.0); MEAN CORPUSCULAR HGB CONC 34.9 % (32.0-36.0); MEAN PLATELET VOLUME 9.3 FL (7.0-11.0); MONO % 7.1 % (0.0-8.0); NEUT % 87.7 % (16.0-70.0); PLATELET COUNT 202 TH/MM3 (150-450); RED BLOOD COUNT 4.59 MIL/MM3 (4.00-5.30); RED CELL DISTRIBUTION WIDTH 13.1 % (11.6-17.2); WHITE BLOOD COUNT 14.7 TH/MM3 (4.0-11.0)
[2017-06-22 06:52] LABS: BICARBONATE 26.8 MEQ/L (21.0-32.0); CALCIUM 8.5 MG/DL (8.5-10.1); CREATININE 0.66 MG/DL (0.50-1.00)
[2017-06-22 07:48] VITALS: O2SAT 99
[2017-06-22 08:00] VITALS: BP 117/56; PULSE 47; RESP 16; TEMP 98.1; O2SAT 99
[2017-06-22] MEDS: SODIUM CHLORIDE 0.9% FLUSH 10 ML FLUSH IV FLUSH SCH (08:27)
[2017-06-22] MEDS: PANTOPRAZOLE SOD 40 MG DELAYED RELEASE TAB PO SCH (08:27)
[2017-06-22] MEDS: VANCOMYCIN INJ 1,000 MG in SODIUM CHLOR 0.9% 250 ML INJ 250 ML IV SCH (09:44)
[2017-06-22] MEDS ORDERED: METOCLOPRAMIDE HCL 10 MG/2 ML VIAL IV PUSH PRN (11:45)
[2017-06-22 12:00] VITALS: BP 134/61; PULSE 43; RESP 16; TEMP 97.2; O2SAT 98
--- NOTE | 2017-06-22 12:02 | HHI.PR ---
Subjective Subjective Notes Pain well controlled Has some residual nausea but otherwise no GI complaints Tolerating PO intake Objective Vitals/I&O Vital Signs Date Time Temp Pulse Resp B/P (MAP) Pulse Ox O2 Delivery O2 Flow Rate FiO2 06/22/17 08:00 98.1 47 16 117/56 (76) 99 06/22/17 07:48 21 06/21/17 16:05 Nasal Cannula 3 Labs Laboratory Tests Test 06/22/17 04:25 White Blood Count 14.7 Red Blood Count 4.59 Hemoglobin 13.9 Hematocrit 39.8 Mean Corpuscular Volume 86.8 Mean Corpuscular Hemoglobin 30.3 Mean Corpuscular Hemoglobin Concent 34.9 Red Cell Distribution Width 13.1 Platelet Count 202 Mean Platelet Volume 9.3 Neutrophils (%) (Auto) 87.7 Lymphocytes (%) (Auto) 5.0 Monocytes (%) (Auto) 7.1 Eosinophils (%) (Auto) 0.0 Basophils (%) (Auto) 0.2 Neutrophils # (Auto) 12.9 Lymphocytes # (Auto) 0.7 Monocytes # (Auto) 1.0 Eosinophils # (Auto) 0.0 Basophils # (Auto) 0.0 CBC Comment DIFF FINAL Differential Comment Blood Urea Nitrogen 8 Creatinine 0.66 Random Glucose 122 Calcium Level 8.5 Magnesium Level 2.0 Sodium Level 141 Potassium Level 3.7 Chloride Level 107 Carbon Dioxide Level 26.8 Anion Gap 7 Estimat Glomerular Filtration Rate 96 Cardiovascular: Regular Lungs: Clear Abdomen: Post-op tenderness Extremities: Perfused Wound Wound : Wound Location: Abdomen Appearance: Clean & Dry A/P Assessment and Plan 47yo F POD#1 laparoscopic VSG -Add Levsin -Continue to increase fluids as tolerated -Continue with frequent ambulation Discharge Planning D/C home today Attending Statement patient seen at bedside doing well encourage fluid intake d/c planning today path pending Attestation The exam, history, and the medical decision-making described in the above note were completed with the assistance of the mid-level provider. I reviewed and agree with the findings presented. I attest that I had a [id number] encounter with the patient on the same day, and personally performed and documented my assessment and findings in the medical record. Mook Gusman Jun 22, 2017 12:02 Aidan Ritter MD Jun 27, 2017 13:44
[2017-06-22] MEDS ORDERED: LEVS0.123 SL (12:04)
[2017-06-22] MEDS ORDERED: HYOSCYAMINE 0.125 MG TAB SL SCH (13:00)
== END 2017-06-22 13:15 | disposition home or self-care (01) | DRG 621 ==
LOC: HSDI 05:25 → N07A 16:12
PROVIDERS: ADMIT Surgery; ATTEND Surgery
PROC: 0DB64Z3 Excision of Stomach, Percutaneous Endoscopic Approach, Vertical (ICD-10-PCS; principal; 2017-06-21 09:49)
DX: E66.01 Morbid (severe) obesity due to excess calories (principal); Z68.41 Body mass index [BMI] 40.0-44.9, adult; G47.33 Obstructive sleep apnea (adult) (pediatric); K21.9 Gastro-esophageal reflux disease without esophagitis
CPT/HCPCS: 80048; 83735; 85025; 88307; 88341; 88342; 94150; 94640; 94664; J0131; J1100; J1170; J1650; J2250; J2405; J2710; J2765; J3010; J3370; J3480; J7050; J7120; J7613; J8501

== ENCOUNTER → 2017-08-30 | Outpatient (CLI) | payer OTHER ==
[~2017-08-30] MED LIST changes: +CARA1TAB6 PO; -CETI10CH CHEW; -DAILTAB38 PO; +MACR100C2 PO; +PROT40TA PO
[2017-08-30 10:12] LABS: BASOPHIL # 0.1 TH/MM3 (0-0.2); BASOPHIL % 1.5 % (0.0-2.0); EOSINOPHIL # 0.2 TH/MM3 (0-0.4); EOSINOPHIL % 3.6 % (0.0-4.0); HEMATOCRIT 43.1 % (35.0-46.0); HEMOGLOBIN 14.8 GM/DL (11.6-15.3); LYMPH % 26.8 % (9.0-44.0); LYMPHOCYTE # 1.4 TH/MM3 (1.0-4.8); MEAN CELL VOLUME 88.4 FL (80.0-100.0); MEAN CORPUSCULAR HEMOGLOBIN 30.5 PG (27.0-34.0); MEAN CORPUSCULAR HGB CONC 34.4 % (32.0-36.0); MEAN PLATELET VOLUME 9.4 FL (7.0-11.0); MONO % 9.6 % (0.0-8.0); MONOCYTE # 0.5 TH/MM3 (0-0.9); NEUT % 58.5 % (16.0-70.0); PLATELET COUNT 190 TH/MM3 (150-450); RED BLOOD COUNT 4.87 MIL/MM3 (4.00-5.30); RED CELL DISTRIBUTION WIDTH 13.6 % (11.6-17.2); WHITE BLOOD COUNT 5.2 TH/MM3 (4.0-11.0)
[2017-08-30 10:16] LABS: ALBUMIN 3.8 GM/DL (3.4-5.0); AST (GOT) 22 U/L (15-37); BICARBONATE 27.9 MEQ/L (21.0-32.0); BLOOD UREA NITROGEN 14 MG/DL (7-18); CALCIUM 9.4 MG/DL (8.5-10.1); CHLORIDE 104 MEQ/L (98-107); CREATININE 0.78 MG/DL (0.50-1.00); GLOMERULAR FILTRATION RATE 80 ML/MIN (>89); GLUCOSE,RANDOM 68 MG/DL (74-106); SODIUM (NA) 140 MEQ/L (136-145)
[2017-08-30 10:17] LABS: CHOLESTEROL 122 MG/DL (120-200)
[2017-08-30 10:42] LABS: ALKALINE PHOSPHATASE 102 U/L (45-117); ALT (GPT) 29 U/L (10-53); CHOLESTEROL/ HDL RATIO 2.45 RATIO; FREE T4 0.95 NG/DL (0.76-1.46); HDL CHOLESTEROL 49.7 MG/DL (40.0-60.0); LDL CHOLESTEROL 63 MG/DL (0-99); TOTAL BILIRUBIN ADULT 1.2 MG/DL (0.2-1.0); TOTAL PROTEIN 7.4 GM/DL (6.4-8.2); TRIGLYCERIDES 48 MG/DL (42-150)
[2017-08-30 10:44] LABS: FOLATE GREATER THAN 20.0 NG/ML (3.1-17.5)
== END ==
LOC: ELAB 07:28
DX: E55.9 Vitamin D deficiency, unspecified (principal); K21.0 Gastro-esophageal reflux disease with esophagitis; R53.83 Other fatigue; E78.2 Mixed hyperlipidemia
CPT/HCPCS: 36415; 80053; 80061; 82306; 82607; 82746; 84439; 84443; 85025